=== PATIENT | female | born 1960 | race Two or more races ===

== ENCOUNTER 2019-03-03 09:07 | Outpatient (CLI) | payer OTHER | END 2019-03-03 09:11 | disposition home or self-care (01) | LOC: TOM 09:07 | DX: K56.50 Intestinal adhesions [bands], unspecified as to partial versus complete obstruction (principal); Z86.010 Personal history of colon polyps ==

== ENCOUNTER 2019-04-20 08:15 | Outpatient (CLI) | payer OTHER | END 2019-04-20 08:50 | disposition home or self-care (01) | LOC: LAB 08:15 | DX: N30.00 Acute cystitis without hematuria (principal); R73.03 Prediabetes; D59.4 Other nonautoimmune hemolytic anemias; I11.9 Hypertensive heart disease without heart failure; R05 Cough ==

== ENCOUNTER → 2019-04-28 | Outpatient (CLI) | payer OTHER | END | disposition home or self-care (01) | LOC: NUCLEAR 14:00 | DX: M81.0 Age-related osteoporosis without current pathological fracture (principal) ==

== ENCOUNTER 2019-12-02 09:27 | Outpatient (CLI) | payer OTHER | END 2019-12-02 15:00 | disposition home or self-care (01) | LOC: LAB 09:27 | DX: N39.0 Urinary tract infection, site not specified (principal); D64.89 Other specified anemias; R10.84 Generalized abdominal pain; E55.9 Vitamin D deficiency, unspecified; R80.8 Other proteinuria; N18.1 Chronic kidney disease, stage 1; B96.29 Other Escherichia coli [E. coli] as the cause of diseases classified elsewhere ==

== ENCOUNTER 2020-01-28 16:59 | Emergency (ER) | payer OTHER ==
[~2020-01-28] VITALS: Ht 157.5 cm; Wt 81.6 kg
[2020-01-28] MEDS ORDERED: COZAAR50 MG (17:13)
== END 2020-01-28 18:05 | disposition home or self-care (01) ==
LOC: ER 16:59
DX: B34.9 Viral infection, unspecified (principal)

== ENCOUNTER 2020-03-06 08:44 | Outpatient (CLI) | payer OTHER ==
[~2020-03-06 08:44] MED LIST: COZAAR50 MG
== END 2020-03-06 09:14 | disposition home or self-care (01) ==
LOC: RAD 08:44
DX: Z12.31 Encounter for screening mammogram for malignant neoplasm of breast (principal); Z87.898 Personal history of other specified conditions; I10 Essential (primary) hypertension; M54.5 Low back pain; Z01.810 Encounter for preprocedural cardiovascular examination; E03.8 Other specified hypothyroidism; E78.89 Other lipoprotein metabolism disorders; E11.51 Type 2 diabetes mellitus with diabetic peripheral angiopathy without gangrene; E55.9 Vitamin D deficiency, unspecified; E66.8 Other obesity; E11.319 Type 2 diabetes mellitus with unspecified diabetic retinopathy without macular edema; M51.86 Other intervertebral disc disorders, lumbar region; N20.0 Calculus of kidney

== ENCOUNTER 2020-03-06 10:04 | Outpatient (CLI) | payer OTHER | END 2020-03-06 10:15 | disposition home or self-care (01) | LOC: NUCLEAR 10:04 | DX: M51.86 Other intervertebral disc disorders, lumbar region (principal); M54.5 Low back pain; Z01.810 Encounter for preprocedural cardiovascular examination; I10 Essential (primary) hypertension; E03.8 Other specified hypothyroidism; E78.89 Other lipoprotein metabolism disorders; E11.51 Type 2 diabetes mellitus with diabetic peripheral angiopathy without gangrene; E55.9 Vitamin D deficiency, unspecified; E11.9 Type 2 diabetes mellitus without complications; E66.8 Other obesity; E11.319 Type 2 diabetes mellitus with unspecified diabetic retinopathy without macular edema; I73.9 Peripheral vascular disease, unspecified; M81.0 Age-related osteoporosis without current pathological fracture ==

== ENCOUNTER 2020-03-22 11:32 | Outpatient (CLI) | payer OTHER | END 2020-03-22 11:34 | disposition home or self-care (01) | LOC: RAD 11:32 | DX: R07.89 Other chest pain (principal) ==

== ENCOUNTER 2020-07-26 08:15 | Emergency (ER) | payer OTHER ==
[~2020-07-26] VITALS: Ht 162.6 cm; Wt 81.6 kg
[2020-07-26] MEDS ORDERED: OMEPRAZOLE40 MG (08:56)
[2020-07-26] MEDS ORDERED: MAXIMUM D3325 MCG (08:56)
[2020-07-26] MEDS ORDERED: CHILDREN'S ASPI81 MG (08:56)
[2020-07-26] MEDS ORDERED: KETO10TA2 PO (13:01)
== END 2020-07-26 13:56 | disposition home or self-care (01) ==
LOC: ER 08:15
DX: S93.492A Sprain of other ligament of left ankle, initial encounter (principal); G89.11 Acute pain due to trauma; M54.2 Cervicalgia; S90.32XS Contusion of left foot, sequela; S70.01XS Contusion of right hip, sequela; W18.09XS Striking against other object with subsequent fall, sequela

== ENCOUNTER 2021-03-27 11:05 | Outpatient (CLI) | payer OTHER ==
[~2021-03-27 11:05] MED LIST changes: +CHILDREN'S ASPI81 MG; +KETO10TA2 PO; +MAXIMUM D3325 MCG; +OMEPRAZOLE40 MG
== END 2021-03-27 11:12 | disposition home or self-care (01) ==
LOC: MAMO-SONO 11:05
PROVIDERS: ATTEND Internal Medicine
DX: Z12.31 Encounter for screening mammogram for malignant neoplasm of breast (principal); Z87.898 Personal history of other specified conditions; N63.0 Unspecified lump in unspecified breast; N60.11 Diffuse cystic mastopathy of right breast; E78.89 Other lipoprotein metabolism disorders; M54.5 Low back pain; I10 Essential (primary) hypertension; E55.9 Vitamin D deficiency, unspecified; E66.8 Other obesity; I49.8 Other specified cardiac arrhythmias; M79.7 Fibromyalgia; J40 Bronchitis, not specified as acute or chronic

== ENCOUNTER → 2021-06-06 10:03 | Outpatient (CLI) | payer OTHER | END | disposition home or self-care (01) | LOC: LAB 10:03 | PROVIDERS: ATTEND Radiology Diagnostic Radiology | DX: R10.31 Right lower quadrant pain (principal) ==

== ENCOUNTER 2021-06-12 09:40 | Outpatient (CLI) | payer OTHER | END 2021-06-12 10:01 | disposition home or self-care (01) | LOC: TOM 09:40 | PROVIDERS: ATTEND Internal Medicine Gastroenterology | DX: R10.31 Right lower quadrant pain (principal); M25.561 Pain in right knee | CPT/HCPCS: 74177; Q9965 ==

== ENCOUNTER → 2021-06-20 08:57 | Outpatient (CLI) | payer OTHER | END | disposition home or self-care (01) | LOC: LAB 08:57 | PROVIDERS: ATTEND Internal Medicine Gastroenterology | DX: K30 Functional dyspepsia (principal); Z11.52 Encounter for screening for COVID-19; Z80.0 Family history of malignant neoplasm of digestive organs; R10.30 Lower abdominal pain, unspecified; R94.5 Abnormal results of liver function studies ==

== ENCOUNTER → 2022-01-07 | Emergency (ER) | payer OTHER ==
[~2022-01-07] VITALS: Ht 160 cm; Wt 84.8 kg
[~2022-01-07] MED LIST changes: +ATORVASTATIN CA20 MG; +BUTALBIT-ACETA1 EACH PO
== END | disposition home or self-care (01) ==
LOC: ER 18:50
DX: R51.9 Headache, unspecified (principal); I10 Essential (primary) hypertension; Z88.1 Allergy status to other antibiotic agents

== ENCOUNTER 2022-01-25 09:44 | Outpatient (CLI) | payer OTHER | END 2022-01-25 09:50 | disposition home or self-care (01) | LOC: SONOGRAMA 09:44 | DX: I11.9 Hypertensive heart disease without heart failure (principal) ==

== ENCOUNTER 2022-04-23 11:06 | Outpatient (CLI) | payer OTHER | END 2022-04-23 11:14 | disposition home or self-care (01) | LOC: MAMO-SONO 11:06 | PROVIDERS: ATTEND Internal Medicine | DX: Z12.31 Encounter for screening mammogram for malignant neoplasm of breast (principal) ==

== ENCOUNTER 2022-04-26 08:48 | Outpatient (CLI) | payer OTHER | END 2022-04-26 08:49 | disposition home or self-care (01) | LOC: NUCLEAR 08:48 | PROVIDERS: ATTEND Internal Medicine | DX: Z13.820 Encounter for screening for osteoporosis (principal); M79.9 Soft tissue disorder, unspecified; I10 Essential (primary) hypertension; M54.59 Other low back pain; E78.9 Disorder of lipoprotein metabolism, unspecified; E55.9 Vitamin D deficiency, unspecified; E66.8 Other obesity; I49.9 Cardiac arrhythmia, unspecified; J40 Bronchitis, not specified as acute or chronic; R80.9 Proteinuria, unspecified; Z12.31 Encounter for screening mammogram for malignant neoplasm of breast ==

== ENCOUNTER 2022-04-29 08:02 | Outpatient (CLI) | payer OTHER | END 2022-04-29 08:06 | disposition home or self-care (01) | LOC: TOM 08:02 | PROVIDERS: ATTEND Internal Medicine | DX: R80.9 Proteinuria, unspecified (principal); E78.9 Disorder of lipoprotein metabolism, unspecified; E55.9 Vitamin D deficiency, unspecified; I49.9 Cardiac arrhythmia, unspecified; M79.7 Fibromyalgia; J40 Bronchitis, not specified as acute or chronic; N18.30 Chronic kidney disease, stage 3 unspecified ==

== ENCOUNTER 2022-04-29 09:24 | Outpatient (CLI) | payer OTHER | END 2022-04-29 09:50 | disposition home or self-care (01) | LOC: PPH VACUNA 09:24 | PROVIDERS: ATTEND Emergency Medicine Pediatric Emergency Medicine | DX: Z23 Encounter for immunization (principal) ==

== ENCOUNTER 2022-11-19 08:07 | Emergency (ER) | payer OTHER ==
[~2022-11-19] VITALS: Ht 154.9 cm; Wt 83.9 kg
== END 2022-11-19 14:19 | disposition home or self-care (01) ==
LOC: ER 08:07
DX: B34.9 Viral infection, unspecified (principal); A49.3 Mycoplasma infection, unspecified site; Z20.822 Contact with and (suspected) exposure to COVID-19

== ENCOUNTER 2023-04-24 10:14 | Outpatient (CLI) | payer OTHER | END 2023-04-24 10:20 | disposition home or self-care (01) | LOC: MAMO-SONO 10:14 | PROVIDERS: ATTEND Internal Medicine | DX: Z12.31 Encounter for screening mammogram for malignant neoplasm of breast (principal) ==

== ENCOUNTER → 2023-06-30 | Emergency (ER) | payer OTHER ==
[~2023-06-30] VITALS: Ht 160 cm; Wt 81.2 kg
[~2023-06-30] MED LIST changes: +METFORMIN HCL500 M4 PO; +SIMVASTATIN5 MG PO
== END | disposition home or self-care (01) ==
LOC: ER 09:25
DX: S30.821A Blister (nonthermal) of abdominal wall, initial encounter (principal); X08.8XXA Exposure to other specified smoke, fire and flames, initial encounter; Y93.89 Activity, other specified; Y92.89 Other specified places as the place of occurrence of the external cause; Y99.8 Other external cause status; Z88.1 Allergy status to other antibiotic agents
CPT/HCPCS: 96372; 99282; J1885

== ENCOUNTER 2024-05-10 07:04 | Outpatient (CLI) | payer OTHER | END 2024-05-10 07:08 | disposition home or self-care (01) | LOC: SONOGRAMA 07:04 | PROVIDERS: ATTEND Internal Medicine Gastroenterology | DX: R10.11 Right upper quadrant pain (principal) ==

== ENCOUNTER 2024-05-18 07:06 | Outpatient (CLI) | payer OTHER | END 2024-05-18 07:12 | disposition home or self-care (01) | LOC: TOM 07:06 | PROVIDERS: ATTEND Internal Medicine Gastroenterology | DX: N60.11 Diffuse cystic mastopathy of right breast (principal); N60.12 Diffuse cystic mastopathy of left breast; Z12.31 Encounter for screening mammogram for malignant neoplasm of breast; Z12.11 Encounter for screening for malignant neoplasm of colon; Z13.820 Encounter for screening for osteoporosis; I10 Essential (primary) hypertension; E78.9 Disorder of lipoprotein metabolism, unspecified; I49.9 Cardiac arrhythmia, unspecified; M79.7 Fibromyalgia; N39.0 Urinary tract infection, site not specified; K56.600 Partial intestinal obstruction, unspecified as to cause; Z86.010 Personal history of colon polyps ==

== ENCOUNTER 2024-05-25 07:12 | Outpatient (CLI) | payer OTHER | END 2024-05-25 07:13 | disposition home or self-care (01) | LOC: NUCLEAR 07:12 | PROVIDERS: ATTEND Internal Medicine | DX: R07.9 Chest pain, unspecified (principal); I20.1 Angina pectoris with documented spasm | CPT/HCPCS: 78452; 93017; A9500 ==

== ENCOUNTER 2024-06-10 13:45 | Emergency (ER) | payer OTHER ==
[~2024-06-10] VITALS: Ht 162.6 cm; Wt 79.8 kg
[2024-06-10] MEDS ORDERED: 0.9 % SODIUM CHLORIDE 500 ML IV ONE (15:00)
[2024-06-10 15:34] LABS: HEMATOCRIT 35.8 % (36.0-45.00); HEMOGLOBIN 12.2 g/dL (12.0-15.00); MEAN CELL VOLUME 95.2 fL (80.00-100.00); MEAN CORPUSCULAR HEMOGLOBIN 32.4 pg (27.00-32.0); MEAN CORPUSCULAR HGB CONC 34.1 g/dl (32.0-36.0); PLATELET COUNT 197 K/uL (150-450); RED BLOOD COUNT 3.77 M/uL (4.00-6.00); RED CELL DISTRIBUTION WIDTH 15.1 % (11.5-14.5)
[2024-06-10 16:38] LABS: ALBUMIN 3.7 gm/dL (3.4-5.0); BILIRUBIN TOTAL 0.36 mg/dL (0.3-1.2); CALCIUM 9.8 mg/dL (8.5-10.1); CREATININE SERUM 1.29 mg/dL (0.55-1.02); GFR 41.74; GLOBULINA 3.3 G/DL (2.4-3.5); POTASSIUM 4.89 mEq/L (3.5-5.1)
== END 2024-06-10 16:52 | disposition home or self-care (01) ==
LOC: ER 13:46
PROVIDERS: General Practice
DX: R42 Dizziness and giddiness (principal); E11.9 Type 2 diabetes mellitus without complications; Z79.84 Long term (current) use of oral hypoglycemic drugs; E78.00 Pure hypercholesterolemia, unspecified; I11.9 Hypertensive heart disease without heart failure; Z88.8 Allergy status to other drugs, medicaments and biological substances; R53.1 Weakness
CPT/HCPCS: 36415; 96365; 99282; J7042

== ENCOUNTER → 2024-07-01 07:07 | Outpatient (CLI) | payer OTHER | END | disposition home or self-care (01) | LOC: NUCLEAR 07:00 | PROVIDERS: ATTEND Internal Medicine Gastroenterology | DX: R10.11 Right upper quadrant pain (principal) | CPT/HCPCS: 78226; A9537; J2805 ==

== ENCOUNTER 2025-05-25 07:34 | Outpatient (CLI) | payer OTHER | END 2025-05-25 07:36 | disposition home or self-care (01) | LOC: MAMO-SONO 07:34 | DX: N64.4 Mastodynia (principal); N63.0 Unspecified lump in unspecified breast; Z12.31 Encounter for screening mammogram for malignant neoplasm of breast ==

== ENCOUNTER 2025-07-08 17:27 | Emergency (ER) | payer OTHER ==
[~2025-07-08] VITALS: Ht 162.6 cm; Wt 40.4 kg
[2025-07-08] MEDS ORDERED: ACETAMINOPHEN 500 MG GEL..CAP PO ONE ×2 (19:45→19:54)
[2025-07-08] MEDS ORDERED: GUAIFENESIN/DEXTROMETHORPHAN 100MG/10ML BLIST.PACK PO ONE (19:45)
[2025-07-08] MEDS ORDERED: CETIRIZINE HCL 5 MG/5 ML ML PO ONE (19:45)
[2025-07-08] MEDS ORDERED: GUAIFEN/DEXTROMETHORPHAN/PE 10 ML BLIST.PACK PO ONE (19:54)
[2025-07-08] MEDS ORDERED: CETIRIZINE HCL 5MG/5ML BLIST.PACK PO ONE (19:54)
[2025-07-08 20:08] LABS: BASO % 0.6 % (0.1-1.2); EOS # 0.04 (0.04-0.54); EOS % 0.8 % (0.7-7.0); LYMPH # 1.47 (1.18-3.74); LYMPH % 28.1 % (19.3-53.1); MEAN PLATELET VOLUME 11.90 fl (9.4-12.4); MONO # 0.65 (0.24-0.82); NEUT # 3.04 (1.56-6.13); NEUT % 58.1 % (34.0-71.1); RED CELL DISTRIBUTION WIDTH 12.5 % (11.6-14.4)
[2025-07-08 20:16] LABS: MONO % 12.4 % (4.7-12.5)
[2025-07-08 21:11] LABS: COVID-19 AG POSITIVE (NEGATIVE)
[2025-07-08] MEDS ORDERED: ZITHROMAX500 MG PO (21:31)
[2025-07-08] MEDS ORDERED: TUSSIN DM LIQU118 ML PO (21:31)
[2025-07-08] MEDS ORDERED: ZYRTEC10 MG PO (21:31)
== END 2025-07-08 22:17 | disposition home or self-care (01) ==
LOC: ER 17:27
PROVIDERS: General Practice
DX: U07.1 COVID-19 (principal); R51.9 Headache, unspecified; J00 Acute nasopharyngitis [common cold]; I10 Essential (primary) hypertension; E11.9 Type 2 diabetes mellitus without complications; Z79.84 Long term (current) use of oral hypoglycemic drugs; Z88.2 Allergy status to sulfonamides